=== PATIENT | male | born 1995 | race Two or more races ===

== ENCOUNTER 2020-05-21 22:56 | Emergency (ER) | payer OTHER ==
[~2020-05-21] VITALS: Ht 172.7 cm; Wt 148.3 kg
[2020-05-21] MEDS ORDERED: [UNRECOGNIZED DRUG - REMARK] (23:19)
[2020-05-22] MEDS ORDERED: AZITHROMYCIN250 MG PO (06:10)
[2020-05-22] MEDS ORDERED: INTESTINEX680 M1 PO (06:10)
== END 2020-05-22 06:32 | disposition home or self-care (01) ==
LOC: ER 22:56
DX: K92.2 Gastrointestinal hemorrhage, unspecified (principal); U07.1 COVID-19; B96.0 Mycoplasma pneumoniae [M. pneumoniae] as the cause of diseases classified elsewhere; R10.32 Left lower quadrant pain